=== PATIENT | female | born 1940 | race Caucasian/White ===

== ENCOUNTER 2016-10-20 15:08 | Inpatient (IN) | payer MEDICARE ==
[~2016-10-20] VITALS: Ht 160 cm; Wt 49.4 kg
--- NOTE | 2016-10-20 15:10 | NUR ---
ARRIVED PT ARRIVED VIA PRIVATE CAR WITH DAUGHTER AND DAUGHTER IN LAW. PT AGGITATED SOON NAME WAS CALLED FOR PT TO COME BACK TO ROOM. PT WAS YELLING THAT SHE DID NOT NEED ANY MORE TEST. PT KEPT TRYING TO LEAVE THE UNIT AND ME AND RN STUDENT KEPT REDIRECTING PT TRYING TO GET PT INTO ROOM. PT SAT IN THE MIDDLE OF THE FLOOR SAYING SHE WAS NOT GOING IN ROOM SHE DID NOT NEED ANY MORE TEST THAT SHE IS NOT PAYING FOR MORE TESTS. FINALLY GOT PT IN ROOM AND TRIAGE DONE AFTER ABOUT 10MIN.
--- NOTE | 2016-10-20 15:40 | NUR ---
LAB LAB ARRIVED @ BEDSIDE, PT ALLOWED THEM TO DRAW LABS BUT STILL SAYING SHE NEEDS NO MORE TEST.
[2016-10-20 15:55] LABS: BASOPHIL % 0.3 % (0.0-0.2); EOSINOPHIL # 0.3 10^3/uL (0.0-0.2); EOSINOPHIL % 2.4 % (0.0-5.0); HEMATOCRIT 48.8 % (36.0-46.0); HEMOGLOBIN 16.2 g/dL (12.0-15.0); LYMPHOCYTES # 2.6 10^3/uL (1.0-4.8); LYMPHOCYTES % 24.5 % (24.0-44.0); MEAN CELL HGB 29.2 pg (26-34); MEAN CELL HGB CONCENTRATION 33.2 g/dL (33-37); MEAN CORP VOLUME 88.1 fL (78-100); MEAN PLATELET VOLUME 9.2 fL (7.8-11.0); MONOCYTES # 0.8 10^3/uL (0.3-0.8); MONOCYTES % 7.1 % (5.0-12.0); NEUTROPHILS % 65.4 % (41.0-85.0); PLATELET COUNT 202 10^3/uL (150-400); RED CELL DISTRIBUTION WIDTH 14.1 % (11.5-14.5); WHITE BLOOD CELL 10.6 10^3/uL (4.5-11.0)
[2016-10-20 16:03] LABS: BILIRUBIN,URINE NEGATIVE (NEGATIVE); UROBILINOGEN,URINE NORMAL (NEGATIVE)
--- NOTE | 2016-10-20 16:08 | NUR ---
STATUS PT OPENED DOOR TO LEAVE, EXPLAINED TO PT THAT SHE NEEDS TO STAY IN ROOM UNTIL WE GET TEST RESULTS BACK. LEFT DOOR OPENED AND PT STATED THAT WAS BETTER. DAUGHTER AND DAUGHTER IN LAW REMAIN @ PT BEDSIDE.
[2016-10-20 16:17] LABS: UR BENZODIAZEPINE QUAL NEGATIVE (NEGATIVE); UR COCAINE QUAL NEGATIVE (NEGATIVE)
[2016-10-20 16:20] LABS: APPEARANCE,URINE CLEAR (CLEAR); UA COLOR YELLOW (YELLOW)
--- NOTE | 2016-10-20 16:22 | NUR ---
XRAY RADIOLOGY @ BEDSIDE FOR CHEST XRAY
--- NOTE | 2016-10-20 16:23 | NUR ---
STATUS PT UP WALKING IN HALLWAY WITH DAUGHTER IN LAW, REMAINS SLIGHTLY AGGITATED WANTING TO LEAVE BUT IS MORE COOPERATIVE.
--- NOTE | 2016-10-20 16:36 | DIREP ---
PROCEDURE:CHEST 1 VIEW COMPARISON:[facility], CR, XRAY CHEST 2 VWS, 01/06/2016, 05:19 PM. INDICATIONS:medical clearance FINDINGS: LUNGS/PLEURA:There is pulmonary hyperinflation consistent with underlying COPD. No focal consolidation. No effusions. VASCULATURE:Normal. Unremarkable pulmonary vasculature. CARDIAC:Normal. No cardiac silhouette abnormality or cardiomegaly. MEDIASTINUM:Atheromatous calcifications of the aortic arch BONES:Normal. No fracture or visible bony lesion. OTHER:Negative. CONCLUSION:Mild emphysema. No superimposed consolidation or pleural effusion Dictated by: Duke Salvador M.D. on 10/20/2016 at 03:34 PM Read in [place]
[2016-10-20 16:50] LABS: ALANINE AMINOTRANSFERASE 27 U/L (12-78); ALKALINE PHOSPHATASE 79 U/L (50-136); ASPARTATE AMINO TRANSFERASE 38 U/L (0-35); CALCIUM 8.7 mg/dL (8.4-10.5); CARBON DIOXIDE 25.3 mmol/L (20.0-32); CHOLESTEROL 173 mg/dL (120-240); GLUCOSE 117 mg/dL (70-110); HDL CHOLESTEROL 72 mg/dL (32-96)
--- NOTE | 2016-10-20 17:34 | NUR ---
SAMMIE SPRINGER SPOKE TO DR COCHRAN AT THIS TIME REGARDING PT. PT MEDICALLY CLEAR, DR COCHRAN ACCEPTED PT.
--- NOTE | 2016-10-20 17:39 | ER.PDOC ---
General Chief Complaint: Medical Clearance Stated Complaint: MED CLEARANCE Time seen by MD: 17:00 Source: patient, family History of Present Illness Timing/Duration: getting worse Severity: moderate Past Medical History Medical History: COPD, hypertension, other (dementia) LMP (females 10-50): postmenopause Social History Smoking: greater than 1 pack/day Alcohol Use: none Drug Use: none Review of Systems Constitutional: no symptoms reported EENTM: no symptoms reported Respiratory: no symptoms reported Cardiovascular: no symptoms reported Gastrointestinal: no symptoms reported Psychiatric/Neurological: other (paranoia, wandering , danger to self) All Other Systems: Reviewed and Negative Physical Exam General Appearance: No acute distress, Alert EENT: No nystagmus, PERRLA, EOM's intact, NML ENT inspection, Pharynx nml, NML gag reflex Neck: Non-Tender, Full Range of Motion, Supple, Normal Inspection Respiratory: chest non-tender, lungs clear, normal breath sounds, no respiratory distress, no accessory muscle use Cardiovascular: Normal Peripheral Pulses, Regular Rate, Rhythm, No Edema, No Gallop, No JVD, No Murmur Gastrointestinal: Normal Bowel Sounds, No Organomegaly, No Pulsatile Mass, Non Tender, Soft Extremities: Non-Tender, Normal Range of Motion, No Evidence of Trauma, No Edema Neurological/Psychiatric: Alert, Normal Mood/Affect, Calm, block cuber II-XII NML as Tested, Oriented x 3 Behavior/Eye Contact/Speech: Compulsive Thoughts/Hallucinations: Delusions, Paranoid Skin: Normal Color, Warm/Dry Results/Orders Results/Orders Laboratory Tests Test 10/20/16 15:31 10/20/16 15:49 10/20/16 15:55 Opiates Screen Negative (NEGATIVE) Barbiturate Screen Negative (NEGATIVE) Urine Tricyclic Antidepressants Negative (NEGATIVE) Phencyclidine (PCP) Screen Negative (NEGATIVE) Amphetamines Screen Negative (NEGATIVE) Benzodiazepines Screen Negative (NEGATIVE) Cocaine Screen Negative (NEGATIVE) Ur Tetrahydrocannabinol (THC) Scrn Negative (NEGATIVE) White Blood Count 10.610^3/uL (4.5-11.0) Red Blood Count 5.5410^6/uL (4.00-5.20) Hemoglobin 16.2g/dL (12.0-15.0) Hematocrit 48.8% (36.0-46.0) Mean Corpuscular Volume 88.1fL (78-100) Mean Corpuscular Hemoglobin 29.2pg (26-34) Mean Corpuscular Hemoglobin Concent 33.2g/dL (33-37) Red Cell Distribution Width 14.1% (11.5-14.5) Platelet Count 49296^3/uL (150-400) Mean Platelet Volume 9.2fL (7.8-11.0) Neutrophils (%) (Auto) 65.4% (41.0-85.0) Lymphocytes (%) (Auto) 24.5% (24.0-44.0) Monocytes (%) (Auto) 7.1% (5.0-12.0) Neutrophils # (Auto) 7.010^3/uL (1.8-7.7) Lymphocytes # (Auto) 2.610^3/uL (1.0-4.8) Monocytes # (Auto) 0.810^3/uL (0.3-0.8) Absolute Immature Granulocyte (auto 0.0310^3 u/L (0-2) Eosinophils % 2.4% (0.0-5.0) Basophils % 0.3% (0.0-0.2) Basophils # 0.010^3/uL (0.0-0.1) Eosinophil Count 0.310^3/uL (0.0-0.2) Prothrombin Time 11.1SEC (9.8-11.9) Prothromb Time International Ratio 1.0 Activated Partial Thromboplast Time 24.0SEC (24.67-30.72) Sodium Level 143mmol/L (132-145) Potassium Level 4.0mmol/L (3.6-5.2) Chloride Level 109.0mmol/L (96-109) Carbon Dioxide Level 25.3mmol/L (20.0-32) Anion Gap 12.7 Blood Urea Nitrogen 25mg/dL (7-18) Creatinine 0.91mg/dL (0.59-1.40) Estimat Glomerular Filtration Rate BUN/Creatinine Ratio 27.0 Glucose Level 117mg/dL (70-110) Hemoglobin A1c 5.3% (4.2-6.2) Calculated Osmolality 300.9 Calcium Level 8.7mg/dL (8.4-10.5) Total Bilirubin 0.2mg/dL (0.2-1.0) Aspartate Amino Transf (AST/SGOT) 38U/L (0-35) Alanine Aminotransferase (ALT/SGPT) 27U/L (12-78) Alkaline Phosphatase 79U/L (50-136) Total Creatine Kinase 219U/L (26-192) Creatine Kinase MB 5.0ng/mL (0.5-3.6) Troponin I < 0.02ng/mL (0.00-0.05) C-Reactive Protein < 0.05mg/dL (0.00-5.00) Pro-B-Type Natriuretic Peptide 102pg/mL (0-450) Total Protein 6.6g/dL (6.4-8.2) Albumin 3.9g/dL (3.4-5.0) Globulin 2.7 Triglycerides Level 70mg/dL (20-200) Cholesterol Level 173mg/dL (120-240) LDL Cholesterol, Calculated 87.0 VLDL Cholesterol 14.0 HDL Cholesterol 72mg/dL (32-96) Cholesterol Ratio (LDL/HDL) 1.2 Cholesterol/HDL Ratio 2.225681 Thyroid Stimulating Hormone (TSH) 3.152mIU/mL (0.358-3.740) Valproic Acid (Depakene) Level < 3ug/mL (50-100) [place] Level < 0.20mmol/L (0.6-1.2) Percent Immature Gran (Cell Imm) 0.30% (0.00-0.50) Urine Collection Type Unknown Urine Color Yellow (YELLOW) Urine Appearance Clear (CLEAR) Urine Bilirubin NegativeMG/DL (NEGATIVE) Urine Ketones Negative (NEGATIVE) Urine Specific [place] 1.020 (1.005-1.035) Urine pH 6 (5.0-6.0) Urine Protein 15 mg/dl (NEGATIVE) Urine Urobilinogen Normal (NEGATIVE) Urine Nitrate Negative (NEGATIVE) Urine Leukocyte Esterase 25 /ul trace (NEGATIVE) Urine Blood Negative (NEGATIVE) Urine RBC None seenRBC/HPF Urine WBC 2-5WBC/HPF (0-2) Urine Squamous Epithelial Cells Few#/HPF (FEW) Urine Bacteria Moderate (NONE SEEN) Urine Glucose Normal (NEGATIVE) Departure Time of Disposition: 18:00 Disposition: 65 XFER TO PSYCH HOSP/UNIT Impression: Primary Impression: Dementia Referrals: PCP,UNKNOWN (PCP) PRIMARY CARE PROVIDER Comments DR COCHRAN CONSULTED ANUSHKA SPRINGER MD Oct 20, 2016 17:38
[2016-10-20 18:02] VITALS: BP 141/85
--- NOTE | 2016-10-20 18:03 | NUR ---
On unit Pt ambulated onto unit alongside Uday Conn LVN and x2 family members. Pt is alert, states, "I'm angry. Can I leave now?" Anxious, flat, and irritable affect. Able to be redirected with verbalization.
[2016-10-20] MEDS ORDERED: MIRT30TA4 PO (18:13)
[2016-10-20] MEDS ORDERED: MELO15TA6 PO (18:13)
[2016-10-20] MEDS ORDERED: AMLO1CAP8 PO (18:13)
[2016-10-20] MEDS ORDERED: ALEN70TA5 PO (18:13)
[2016-10-20] MEDS ORDERED: MEMA1CAP6 PO (18:13)
[2016-10-20] MEDS ORDERED: CALC-614 PO (18:15)
[2016-10-20] MEDS ORDERED: CHOL20003 PO (18:16)
[2016-10-20] MEDS ORDERED: ATIVAN IM PRN (18:30)
[2016-10-20] MEDS ORDERED: ATIVAN PO PRN (18:30)
[2016-10-20] MEDS ORDERED: HALDOL IM PRN (18:30)
[2016-10-20] MEDS ORDERED: HALDOL PO PRN (18:30)
[2016-10-20] MEDS ORDERED: RISPERDAL ONE (18:43)
[2016-10-20] MEDS ORDERED: REMERON ONE (18:43)
--- NOTE | 2016-10-20 19:09 | PRM.ACF1 ---
Admission Criteria Forms PSYCHIATRIC DISORDERS Clinical Indications for Inpatient Care (Place 'X' for any and all applicable criteria): Ongoing inpatient care may be needed for ANY ONE of the following(1)(2)(3)(4)(6) (7)(8): [ ]I. Danger to self or others not manageable at lower level of care. [ ]II. Grave disability (eg, inability to perform self care necessary at lower level of care) [ ]III. Agitation or inappropriate behavior interfering with care for primary condition (eg, attempting to discontinue lines or drains prematurely, unable to cooperate with respiratory care) [X]IV. Severe disability or disorder indicated by ALL of the following: [X]a) Severe behavioral health disorder-related symptoms or condition indicated by ANY ONE of the following: [ ]i) Severe problem with cognition, memory, judgment, or impulse control [X]ii) Severe clinical manifestations (eg, hallucinations, delusions, other acute psychotic symptoms, mechelle, extreme agitation or anxiety) [X]b) Patient management at lower level of care is not feasible until acute intervention or modification is initiated. Extended stay beyond goal length of stay for the primary condition may be indicated when ANY ONE of the following is present: (1)(2)(3)(4): [ ]a) Patient is a danger to self or others and not manageable at lower level of care. [ ]b) Behavior crisis management, including physical or chemical restraints, is required and is not available at a lower level of care. [ ]c) Behavioral symptoms (e.g., agitation, somnolence, inappropriate behavior) are present, and are not manageable at a lower level of care. [ ]d) Patient cannot understand follow-up treatment and crisis plan. [ ]e) Provider and supports are not sufficiently available at lower level of care. [ ]f) Patient cannot participate (e.g., verify absence of plan for harm) and is in needed of monitoring. The original [facility] [employer] content created by [facility] [employer] has been revised. The portions of the content which have been revised are identified through the use of italic text or in bold, and [facility] has neither reviewed nor approved the modified material. All other unmodified content is copyright [facility]. Please see references footnoted in the original [facility] edition 2016 Is [facility]parna's added/comple: YES MADISON TRIVEDI CDS Oct 20, 2016 19:09
[2016-10-20] MEDS: RISPERDAL PO SCH (20:58)
[2016-10-20] MEDS: REMERON PO SCH (20:59)
--- NOTE | 2016-10-20 21:00 | NUR ---
behaviors FOLLOWING SHIFT REPORT PT,HER DAUGHTER AND DAUGHTER IN LAW WERE SITTING IN FRONT OF NURSE'S DESK. PT. WAS AGITATED SAYING SHE WAS NOT GOING TO STAY HERE. DR. MUÑOZ THEN CALLED ON TELEMED ,REQUESTED TO TALK TO DAUGHTER ALONE, FIRST BUT PT. BURST INTO THE ROOM AND WAS YELLING LOUDLY AND SAYING SHE WAS NOT GOING TO STAY ALL NIGHT HERE. PT. STATES SHE IS NOT DEPRESSED OR ANXIOUS BUT STATED SHE WAS ANGRY AT HER FAMILY FOR BRINGING HER HERE. SHE STATES SHE NEEDS TO GO HOME AND TAKE CARE OF HER DOGS WHO SLEEP WITH HER. DAUGHTER STATES PT. DOES NOT WANT TO BATH AND DOES NOT KNOW WHEN SHE LAST BATHED. PT. STATES SHE WALKS HER DOGS AROUND THE BLOCK EVERY DAY AND IS NOT IN ANY DANGER BUT DAUGHTER SAYS THEY HAVE TO CALL THE POLICE AND PT. TELLS THE POLICE THAT SHE IS WALKING TO [place], [place]. MEDICATION ORDER RECEIVED FROM DR. MUÑOZ. PT. DID TAKE MEDICATION. PT. STATED SHE DID NOT NEED ANY MEDICATION THOUGH. WITH PT.'S PERMISSION HER PURSE AND CONTENTS , WALLET,MONEY,WATCH AND MEDICATIONS SENT HOME WITH DAUGHTER IN LAW. PT. WENT TO BED BUT REFUSED TO CHANGE INTO NIGHT CLOTHING. MEMORY LOSS NOTED. PT. SMOKES CIGARETTES BUT REFUSED A NICOTINE PATCH WHEN OFFERED BY DR. MUÑOZ. Addendum: 10/21/16 at 0142 by Tiffany Colmenares RN RN Amended: Links added.
--- NOTE | 2016-10-20 21:00 | NUR ---
Medication pt received new medication this HS discuss what each med is used for pt is very upset and crying and states she does not need any medication. Pt. takes medication without difficulty will monitor pt for any adverse reaction
--- NOTE | 2016-10-20 23:42 | PSYCH ---
DATE OF SERVICE: 10/20/2016 INITIAL PSYCHIATRIC HISTORY AND PHYSICAL CHIEF COMPLAINT: Brought on emergency fci for aggressive and exit seeking behavior. HISTORY OF PRESENT ILLNESS: The patient is a 76-year-old female with a history of Alzheimer type dementia, behavior problems, and depression. The patient was very irritable tonight in the interview. She had 2 family members with her. She was yelling and screaming at staff. She showed very poor insight into her illness and the situation. She was oriented to person. She was disoriented to place, time, and situation. She could not do serial sevens. She could not spell "world" backwards. She got very irritable when asked these questions. She stated that her mood was okay. She denied feeling depressed. She denied anxiety symptoms. She denied psychotic symptoms. She denied manic or hypomanic symptoms. Her mood is irritable. She denied suicidal or homicidal ideation. She downplayed the significance of her problems. Per reports, she has had exit seeking behavior where she has tried to walk from [place], [place] to [place]. She is not driving anymore and just leaves her house and walks and forgets where she is. She has called the police for no reasons at times. She was put on emergency fci by [facility] earlier today. Her family is concerned about her behaviors. She is not very cooperative. PAST MEDICAL HISTORY: 1. Hypertension. 2. Dementia. 3. History of pain. CURRENT MEDICATIONS: 1. Alendronate 70 mg p.o. every 7 days. 2. Amlodipine/benazepril 5/10 mg capsules p.o. daily. 3. Calcium carbonate/vitamin D3 500/600 mg tablet daily. 4. Vitamin D3 5000 units p.o. daily. 5. Mobic 15 mg p.o. daily p.r.n. pain. 6. Memantine/donepezil 02/01/08/05 capsule daily. 7. Mirtazapine 30 mg p.o. at bedtime. PAST PSYCHIATRIC HISTORY: The patient has ever been hospitalized for psychiatric reasons. She has never attempted suicide. She has been treated for Alzheimer-type dementia and depression in the past. She has never followed with psychiatrist on a regular basis. FAMILY PSYCHIATRIC HISTORY: None reported. SOCIAL HISTORY: The patient denies using alcohol, illicit drugs, or tobacco. The patient lives in [place], [place]. She enjoys her pets. She talked about her pets multiple times and stated she needed to go home due to her pets. She is retired. She is . She has 2 children. One of her children lives in [place]. OBJECTIVE: VITAL SIGNS: Height is 63 inches, weight is 101 pounds, BMI is 18.0, temperature is 97.0, pulse is 91, respirations are 18, blood pressure is 141/85, O2 saturations 96% on room air. The patient was in no physical pain or distress at the time of the interview. REVIEW OF SYSTEMS: CONSTITUTIONAL: No recent changes in weight. No fatigue. No insomnia reported. NEUROLOGICAL: No tremors. No weakness. No dizziness. PSYCHIATRIC: Positive for irritability. No anxiety. No psychosis. No crying spells. No mechelle. GASTROINTESTINAL: No nausea, vomiting, diarrhea, or constipation reported. MUSCULOSKELETAL: No abnormal muscle movements. No musculoskeletal pain reported. GENITOURINARY: No problems urinating. EYES: No recent changes in vision. EARS: No recent changes in hearing. EXTREMITIES: No swelling or edema. ENDOCRINE: No heat or cold intolerance. CARDIOVASCULAR: No chest pain or chest palpitations. RESPIRATORY: No shortness of breath. No wheezing or coughing. Review of systems is otherwise negative, reviewed by Dr. Bernstein. MENTAL STATUS EXAMINATION: MUSCLE STRENGTH AND TONE: Within normal limits and no recent changes. GAIT AND STATION: Within normal limits and no recent changes. APPEARANCE: Well-groomed and good hygiene. Appears stated age. Casual attire. Underweight. ATTITUDE AND BEHAVIOR: Uncooperative. Poor eye contact. Psychomotor agitation. MOOD AND AFFECT: Mood is irritable. Affect is guarded. ORIENTATION: Disoriented to place, time, and situation. ATTENTION AND CONCENTRATION: Poor attention and poor concentration. SPEECH: Regular rate, volume, rhythm, and prosody. JUDGMENT AND INSIGHT: Poor judgment and poor insight. THOUGHT PROCESS: Linear and goal directed. Perseverates on certain ideas. LANGUAGE: Lebanese. THOUGHT CONTENT: Negative for suicidal or homicidal ideation. Negative for auditory or visual hallucinations. Positive for delusional thinking. FUND OF KNOWLEDGE: Poor. ASSOCIATIONS: Loose associations. MEMORY: Recent and remote memory are both impaired. ASSESSMENT: Alzheimer type dementia with behavior disturbance; delusional disorder; major depressive disorder; generalized anxiety disorder. TREATMENT PLAN: 1. The patient will be an involuntary admission at the [facility]. The patient will be monitored closely for behaviors. 2. The patient will be started on Risperdal 0.25 mg p.o. b.i.d. The patient will be started on Haldol 1 mg p.o. or IM q.6 hours p.r.n. agitation and lorazepam 0.5 mg p.o. or IM q.6 hours p.r.n. anxiety. The patient will continue Remeron 15 mg p.o. at bedtime and her Namenda/donepezil pill. 3. The patient will be seen by Dr. Abbasi and he will manage her general health medications. 4. The patient will be encouraged to participate in all groups and activities. José Antonio Bernstein IV MD DR: /aranza JOB# [id number]
[2016-10-21] MEDS ORDERED: NAMENDA ONE (06:47)
[2016-10-21] MEDS ORDERED: ARICEPT ONE (06:47)
--- NOTE | 2016-10-21 07:30 | NUR ---
behavior: PT. ALERT TO NAME ONLY. PT. DENIES ANY DEPRESSION,ANXIETY OR S/H IDEATION. PT. HAS BEEN CALM AND COOPERATIVE.
[2016-10-21 08:10] VITALS: BP 160/89
[2016-10-21] MEDS: RISPERDAL PO SCH ×2 (08:37→20:19)
[2016-10-21] MEDS: ARICEPT PO SCH (08:48)
[2016-10-21] MEDS: NAMENDA PO SCH (08:50)
--- NOTE | 2016-10-21 10:10 | NUR ---
[place] TEAM: PT. SEEN BY DR. MUÑOZ AND [place] TEAM. NO NEW ORDERS.
--- NOTE | 2016-10-21 10:11 | PRM.PN ---
Mood: DEPRESSED, IRRITABLE, CONFUSED Sleep: SLEPT 4.75 HOURS LAST NIGHT Appetite: UP AND DOWN Suidical thoughts: NONE REPORTED Homicidal thoughts: NONE REPORTED Recent stressors: STRESS OF MENTAL ILLNESS Family support: DAUGHTER, [id number] Aggressive Behavior: VERBALLY AGGRESSIVE Ability to Perform ADL'sc: ABLE TO DO HER ADLS Psychotic sympstoms: DELUSIONAL THINKING, NO HALLUCINATIONS Manic Symptoms: NONE REPORTED Living situation: WAS LIVING AT HOME IN [place] Illicit Drug usec: NONE REPORTED Alcoholo use: NONE REPORTED Tobacco use: NONE REPORTED Family,PT,Surgical,&Current HX: Anxity Symptoms: MODERATE ANXIETY LEVEL Anger/Irritablility: PROBLEMS WITH ANGER AND IRRITABILITY Muscle Strength & Tone: WNL Gait & Station: WNL Appearance: Appears older, Casual attire, Underweight Attitude & Behaviour: Uncooperative, Poor eye contact, Psychomotor agitation Mood & Affect: Iabile Orientation: Disoriented to place, Disoriented to time, Disoriented to situation Attention/Concentration: Poor attention, Poor concentration Speech: Impaired Judgement/Insight: Poor judgement, Poor insight Thought Process: Loose, Tangential Language: Kosovan Thought content/Abnormal/Psych: Delusions Fund of Knowledge: Other Associations: TOMER Memory (recent and remote): Recent memory repaired, Remote memory repaired Constitutional: None Neurological: None Psychiatric: Depressed, Anxious, Psychosis [place] I: DELUSIONAL DISORDER; PSYCHOSIS; DEMENTIA; ANXIETY, DEPRESSION [place] II: DEFERRED [place] III: REFER TO PMH/MEDICAL CHART [place] IV: STRESS OF MENTAL ILLNESS [place] V: GAF=25 Assessment/Plan Assessment/Plan Assessment/Plan First Vital Signs Date Time Temp Pulse Resp B/P Pulse Ox O2 Delivery O2 Flow Rate FiO2 10/20/16 15:29 112 18 96 10/20/16 15:37 98.2 165/79 10/20/16 18:02 Room Air Last Vital Signs Date Time Temp Pulse Resp B/P Pulse Ox O2 Delivery O2 Flow Rate FiO2 10/21/16 08:10 96.8 79 18 160/89 92 Room Air THE PATIENT WAS SEEN BY DR. MUÑOZ FACE TO FACE ALONG WITH THE TREATMENT TEAM. THE PATIENT WAS TRYING TO WALK FROM [place] TO [place]. SHE WANDERS OUT OF HER HOUSE AND GETS LOST PER HER FAMILY. THE PATIENT SLEPT 4.75 HOURS LAST NIGHT. THE PATIENT DID NOT EAT MUCH BREAKFAST THIS MORNING. SHE IS GOING TO GET BOOST SHAKES WITH HER MEALS. THE PATIENT HAS LIMITED INSIGHT INTO HER PROBLEMS. ASSESSMENT: DELUSIONAL DISORDER; PSYCHOSIS; ALZHEIMER'S DEMENTIA WITH BEHAVIOR PROBLEMS; MAJOR DEPRESSION; GENERALIZED ANXIETY DISORDER PLAN: 1) CONTINUE [place] [place] MANAGEMENT. 2) CONTINUE CURRENT MEDICATIONS. THE STAFF WAS AGREEABLE WITH THE PLAN. Problems: (1) Dementia Status: Acute ICD Code: F03.90 SNOMED: 74831120 (2) Delusional disorder Status: Acute ICD Code: F22 SNOMED: [id number] Patient History: KAYDEN MUÑOZ IV, MD Oct 21, 2016 10:10
[2016-10-21] MEDS ORDERED: MOBIC PO PRN (13:00)
[2016-10-21] MEDS ORDERED: FOSAMAX PO SCH (13:00)
--- NOTE | 2016-10-21 13:45 | PCM.HP ---
History of Present Illness Reason for Visit: Delusional Disorder, Dementia with Behavior Disturbance History of Present Illness 76 y/o F who lives alone with her dogs with PMHx Alzheimers Dementia, COPD, HTN , Active Heavy Smoker, B-12 deficiency, Polycythemia likely due to smoking, Depression, Osteoporosis, Osteoarthritis presented for involuntary admission with a diagnosis of "Delusional Disorder" to the [facility] unit after she was found to be [place] her [place] in an extremely unsafe manner and was found to be confused and disoriented when she was doing this. She has no acute medical problems. She denies any complaints. The patient has dementia and is unable to provide any medical history. Her past medical history was obtained from very limited medical records that are available and from the assumption that the medications she was taking (e.g., Alendronate, Meloxicam, Mirtazapine) are being used to treat the conditions those medications are usually used for: Osteoporosis, Osteoarthritis, Depression/Anxiety. 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 Alcohol: none Drugs: None Lives: Alone Travel Hx EBOLA RISK:Travel to/contact w: No Is pt experiencing any Ebola s: No Review of Systems Constitutional: No: Chills, Fever, Malaise, Other, Sweats, Weakness Eyes: No: Conjunctivae inflammation, Eyelid inflammation, Other, Pain, Redness , Vision change ENT: No: Ear discharge, Ear pain, Mouth pain, Mouth swelling, Nose congestion, Nose discharge, Nose pain, Other, Throat pain, Throat swelling Respiratory: No: Cough, Dry, Hemoptysis, Other, Pleuritic Pain, SOB with excertion, Shortness of breath, Sputum, Wheezing, Wheezing Cardiovascular: No: Chest Pain, Edema, Lt Headedness, Orthopnea, Other, Palpitations, Paroxysmal Noc. Dyspnea Gastrointestinal: No: Abdominal Pain, Constipation, Diarrhea, Hematochezia, Melena, Nausea, Other, Vomiting Genitourinary: No Dysuria, No Frequency, No Incontinence, No Hematuria, No Retention, No Other Musculoskeletal: No: arm pain, back pain, foot pain, hand pain, leg pain, neck pain, other, shoulder pain Skin: No: Bruising, Jaundice, Lesions, Other, Rash Neurological: No: Change in speech, Confusion, Incoordination, Numbness, Other , Seizures, Weakness Allergies: Coded Allergies: Penicillins (Verified Allergy, Unknown, Anaphylaxis Shock, 10/20/16) Uncoded Allergies: sulfa (Adverse Reaction, Intermediate, 10/20/16) Scheduled Alendronate Sodium (Alendronate Sodium) 70 MG PO Q7D (Reported) Amlodipine Besylate/Benazepril (Amlodipine-Benazepril 5-10 Mg) 1 CAP PO DAILY ( Reported) Calcium Carbonate/Vitamin D3 (Calcium 500-Vit D3 600 Tablet) 1 EACH PO DAILY ( Reported) Cholecalciferol (Vitamin D3) (Vitamin D-3) 5,000 UNIT PO DAILY (Reported) Memantine HCl/Donepezil HCl (Namzaric Titration Pack) 7 MG PO DAILY (Reported) Mirtazapine (Mirtazapine) 1 TAB PO HS (Reported) Scheduled PRN Meloxicam (Mobic) 1 TAB PO DAILY PRN PRN PAIN (Reported) VTE VTE Risk Total Score: 3 VTE Risk Score VTE Risk: Score 0-1 = Low Risk (Aggressive mobilization; early ambulation; no VTE prophylaxis required) Score 2: Moderate Risk (Intermittent/Pneumatic Compression Device OR Lovenox/Heparin/Coumadin) Score 3-4: High Risk (Intermittent/Pneumatic Compression Device AND Lovenox/Heparin/Coumadin) Score > or =5: Highest Risk (Intermittent/Pneumatic Compression Device AND Lovenox/Heparin/Coumadin) Antico:Hep/LMWH/Coum/Xarelto: No Mechanical device ordered: No VTE VTE Present on Admission: No Currently receiving anticoagul: No VTE Risk Total Score: 3 Exam Vital Signs Vital Signs Date Time Temp Pulse Resp B/P Pulse Ox O2 Delivery O2 Flow Rate FiO2 10/21/16 08:10 96.8 79 18 160/89 92 Room Air General Appearance: Alert, No acute distress, Other (Not cooperative. Poor eye contact. Irritable.) HEENT: Atraumatic, PERRLA, EOMI, Mucous membr. moist/pink Respiratory: Clear to auscultation, Normal air movement Cardiovascular: Regular rate, Normal S1, Normal S2, No murmurs Abdominal: Normal bowel sounds, Soft, No tenderness, No masses Extremities: No clubbing, No cyanosis, No edema, Normal pulses, No tenderness/ swelling Skin: No rash, No breakdown, No lesions Neuro: Normal gait, Normal speech, Strength at 5/5 X4 ext, Normal tone, Sensation intact, Cranial nerves 3-12 NL, Reflexes 2+ Psych/Mental Status: Other (+Dementia. +Irritable.) Assessment/Plan Assessment/Plan Assessment/Plan Orders-BRUNO ABBASI MD Pt has h/o Vitamin B12 deficiency but Vitamin B12 results are not available -- will order Vitamin B12 and Folate labs and vitamin, which has both. Resuscitation Status (10/20/16 21:35) Criteria Met - Dietary Consult (10/21/16 04:39) Alendronate Sodium (Fosamax) (10/21/16 13:00) Cholecalciferol (Vitamin D3) (Vitamin D) (10/22/16 09:00) Meloxicam (Mobic) (10/21/16 13:00) Amlodipine Besylate (Norvasc) (10/22/16 09:00) Benazepril Hcl (Lotensin) (10/22/16 09:00) Calcium Carbonate/Vitamin D3 (Caltrate 6 (10/21/16 21:00) First Vital Signs Date Time Temp Pulse Resp B/P Pulse Ox O2 Delivery O2 Flow Rate FiO2 10/20/16 15:29 112 18 96 10/20/16 15:37 98.2 165/79 10/20/16 18:02 Room Air Last Vital Signs Date Time Temp Pulse Resp B/P Pulse Ox O2 Delivery O2 Flow Rate FiO2 10/21/16 08:10 96.8 79 18 160/89 92 Room Air Intake and Output 10/21/16 07:00 Intake Total 50 ml Balance 50 ml Intake Oral 50 ml # Voids 4 Laboratory Tests Test 10/20/16 15:31 10/20/16 15:49 10/20/16 15:55 Opiates Screen Negative Barbiturate Screen Negative Urine Tricyclic Antidepressants Negative Phencyclidine (PCP) Screen Negative Amphetamines Screen Negative Benzodiazepines Screen Negative Cocaine Screen Negative Ur Tetrahydrocannabinol (THC) Scrn Negative White Blood Count 10.610^3/uL Red Blood Count 5.5410^6/uL Hemoglobin 16.2g/dL Hematocrit 48.8% Mean Corpuscular Volume 88.1fL Mean Corpuscular Hemoglobin 29.2pg Mean Corpuscular Hemoglobin Concent 33.2g/dL Red Cell Distribution Width 14.1% Platelet Count 79694^3/uL Mean Platelet Volume 9.2fL Neutrophils (%) (Auto) 65.4% Lymphocytes (%) (Auto) 24.5% Monocytes (%) (Auto) 7.1% Neutrophils # (Auto) 7.010^3/uL Lymphocytes # (Auto) 2.610^3/uL Monocytes # (Auto) 0.810^3/uL Absolute Immature Granulocyte (auto 0.0310^3 u/L Eosinophils % 2.4% Basophils % 0.3% Basophils # 0.010^3/uL Eosinophil Count 0.310^3/uL Prothrombin Time 11.1SEC Prothromb Time International Ratio 1.0 Activated Partial Thromboplast Time 24.0SEC Sodium Level 143mmol/L Potassium Level 4.0mmol/L Chloride Level 109.0mmol/L Carbon Dioxide Level 25.3mmol/L Anion Gap 12.7 Blood Urea Nitrogen 25mg/dL Creatinine 0.91mg/dL Estimat Glomerular Filtration Rate BUN/Creatinine Ratio 27.0 Glucose Level 117mg/dL Hemoglobin A1c 5.3% Calculated Osmolality 300.9 Calcium Level 8.7mg/dL Total Bilirubin 0.2mg/dL Aspartate Amino Transf (AST/SGOT) 38U/L Alanine Aminotransferase (ALT/SGPT) 27U/L Alkaline Phosphatase 79U/L Total Creatine Kinase 219U/L Creatine Kinase MB 5.0ng/mL Troponin I < 0.02ng/mL C-Reactive Protein < 0.05mg/dL Pro-B-Type Natriuretic Peptide 102pg/mL Total Protein 6.6g/dL Albumin 3.9g/dL Globulin 2.7 Triglycerides Level 70mg/dL Cholesterol Level 173mg/dL LDL Cholesterol, Calculated 87.0 VLDL Cholesterol 14.0 HDL Cholesterol 72mg/dL Cholesterol Ratio (LDL/HDL) 1.2 Cholesterol/HDL Ratio 2.809478 Thyroid Stimulating Hormone (TSH) 3.152mIU/mL Valproic Acid (Depakene) Level < 3ug/mL [place] Level < 0.20mmol/L Percent Immature Gran (Cell Imm) 0.30% Urine Collection Type Unknown Urine Color Yellow Urine Appearance Clear Urine Bilirubin NegativeMG/DL Urine Ketones Negative Urine Specific [place] 1.020 Urine pH 6 Urine Protein 15 mg/dl Urine Urobilinogen Normal Urine Nitrate Negative Urine Leukocyte Esterase 25 /ul trace Urine Blood Negative Urine RBC None seenRBC/HPF Urine WBC 2-5WBC/HPF Urine Squamous Epithelial Cells Few#/HPF Urine Bacteria Moderate Urine Glucose Normal Current Medications Medications (Trade) Dose Ordered Sig/Dolly Route PRN Reason Start Time Stop Time Status Last Admin Dose Admin Haloperidol (Haldol) 1 mg Q6HR PRN PO AGITATION 10/20/16 18:30 11/19/16 18:29 Haloperidol Lactate (Haldol) 1 mg Q6HR PRN IM AGITATION 10/20/16 18:30 11/19/16 18:29 Lorazepam (Ativan) 0.5 mg Q6HR PRN PO ANXIETY 10/20/16 18:30 11/19/16 18:29 Lorazepam (Ativan) 0.5 mg Q6HR PRN IM ANXIETY 10/20/16 18:30 11/19/16 18:29 Miscellaneous Medication (Namenda) 7.5 mg DAILY PO 10/21/16 09:00 11/20/16 08:59 10/21/16 08:50 Mirtazapine (Remeron) 15 mg HS PO 10/20/16 21:00 11/19/16 20:59 10/20/16 20:59 Risperidone (Risperdal) 0.25 mg BID PO 10/20/16 21:00 11/19/16 20:59 10/21/16 08:37 Mirtazapine (Remeron) 15 mg STK-MED ONCE .ROUTE 10/20/16 18:43 10/20/16 20:44 DC Risperidone (Risperdal) 0.25 mg STK-MED ONCE .ROUTE 10/20/16 18:43 10/20/16 20:44 DC Donepezil HCl (Aricept) 10 mg DAILY PO 10/21/16 09:00 11/20/16 08:59 10/21/16 08:48 Donepezil HCl (Aricept) 5 mg STK-MED ONCE .ROUTE 10/21/16 06:47 10/21/16 08:48 DC Miscellaneous Medication (Namenda) 10 mg STK-MED ONCE .ROUTE 10/21/16 06:47 10/21/16 08:48 DC Problems: (1) Postmenopausal Status: Acute ICD Code: Z78.0 SNOMED: 44730944 (2) Insomnia Permanent Comment: Slept 4.75 hrs 10/20->10/21. Likely 2/2 Dementia, Depression , and Anxiety. Last Edited By: Bruno Abbasi MD on Oct 21, 2016 14:05 Status: Acute ICD Code: G47.00 SNOMED: 430079093 (3) Irritability and anger Permanent Comment: Per Psychiatrist Dr. Bernstein t has problems with anger and irritability. 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 Status: Acute ICD Code: F03.91 SNOMED: 794243099 (5) Anxiety Status: Acute ICD Code: F41.9 SNOMED: 93071078 (6) Acute depression Status: Acute ICD Code: F32.9 SNOMED: 923271949 (7) Cigarette nicotine dependence with withdrawal Status: Acute ICD Code: F17.213 SNOMED: 98428589 (8) Chronic obstructive pulmonary disease Status: Acute ICD Code: J44.9 SNOMED: 11734248 (9) Heavy smoker (more than 20 cigarettes per day) Status: Acute ICD Code: F17.210 SNOMED: 64575115 (10) Essential (primary) hypertension Status: Acute ICD Code: I10 SNOMED: 60664328 (11) Osteoporosis Status: Acute ICD Code: M81.0 SNOMED: 93835960 (12) Underweight on examination Permanent Comment: Not malnourished. Albumin 3.9. Last Edited By: Bruno Abbasi MD on Oct 21, 2016 14:00 Status: Acute ICD Code: R63.6 SNOMED: 209130514 (13) Dementia Status: Acute ICD Code: F03.90 SNOMED: 15359328 (14) Delusional disorder Status: Acute ICD Code: F22 SNOMED: 17615518 Patient History: BRUNO ABBASI MD Oct 21, 2016 13:45
--- NOTE | 2016-10-21 14:27 | NUR ---
MMSE: MODERATE IMPAIRMENT. PT DID GET FRUSTRATED WITH THE QUESTIONS AND TRIED TO GIVE REASONS TO WHY SHE DOES NOT REMEMBER CERTAIN AREAS OF THE ASSESSMENT. Addendum: 10/23/16 at 1429 by Ester Velazquez, SHYANNE, SUPERVISOR LABORATORY SW Amended: Links added.
--- NOTE | 2016-10-21 14:41 | NUR ---
GMAS: NO DEPRESSION Addendum: 10/23/16 at 1441 by Ester Velazquez, SHYANNE, REPAIRER HANDTOOLS SW Amended: Links added.
[2016-10-21] MEDS ORDERED: [UNRECOGNIZED DRUG - OTHER] ONE (18:18)
[2016-10-21] MEDS ORDERED: CALTRATE ONE (18:18)
[2016-10-21 19:55] VITALS: BP 126/92
[2016-10-21] MEDS: CALTRATE PO SCH (20:19)
[2016-10-21] MEDS: [UNRECOGNIZED DRUG - OTHER] PO SCH (20:19)
[2016-10-21] MEDS: REMERON PO SCH (20:20)
[2016-10-22] MEDS ORDERED: NAMENDA ONE (06:04)
[2016-10-22] MEDS ORDERED: NORVASC ONE (06:05)
[2016-10-22] MEDS ORDERED: LOTENSIN ONE (06:06)
[2016-10-22] MEDS ORDERED: VITAMIN D ONE (06:07)
[2016-10-22 07:48] VITALS: BP 152/77
[2016-10-22] MEDS: CALTRATE PO SCH ×2 (08:05→20:06)
[2016-10-22] MEDS: RISPERDAL PO SCH ×2 (08:05→20:06)
[2016-10-22] MEDS: [UNRECOGNIZED DRUG - OTHER] PO SCH ×2 (08:05→20:06)
[2016-10-22] MEDS: LOTENSIN PO SCH (08:07)
[2016-10-22] MEDS: NORVASC PO SCH (08:07)
[2016-10-22] MEDS: NAMENDA PO SCH (08:08)
[2016-10-22] MEDS: VITAMIN D PO SCH (08:08)
[2016-10-22] MEDS: ARICEPT PO SCH (08:55)
--- NOTE | 2016-10-22 11:08 | PRM.PN ---
Mood: IRRITABLE, "FRUSTRATED" Sleep: SLEEPING WELL AT NIGHT, SLEPT 9 HOURS LAST NIGHT Appetite: NORMAL APPETITE, UNDERWEIGHT Suidical thoughts: NONE REPORTED Homicidal thoughts: NONE REPORTED Recent stressors: STRESS OF MENTAL ILLNESS, POOR MEMORY Family support: DAUGHTER AND [id number] Aggressive Behavior: NONE REPORTED Ability to Perform ADL'sc: ABLE TO DO HER ADLS Psychotic sympstoms: DELUSIONAL THINKING, NO HALLUCINATIONS Manic Symptoms: NONE REPORTED Living situation: LIVES AT HOME Illicit Drug usec: NONE REPORTED Alcoholo use: NONE REPORTED Tobacco use: NONE REPORTED Family,PT,Surgical,&Current HX: Anxity Symptoms: MODERATE ANXIETY LEVEL Anger/Irritablility: SOME ANGER AND IRRITABILITY Muscle Strength & Tone: WNL Gait & Station: WNL Appearance: Appears older, Well groomed/hygience, Casual attire Attitude & Behaviour: Cooperative/Pleasant, Good eye contact, Psychomotor agitation Mood & Affect: Euthymic/appr/congruent, Iabile, Angry Orientation: Disoriented to place, Disoriented to time, Disoriented to situation Attention/Concentration: Poor attention, Poor concentration Speech: Reg rate/vol/rhyth/prosod Judgement/Insight: Poor judgement, Poor insight Thought Process: Linear/goal directed Language: Romansh Thought content/Abnormal/Psych: Delusions Fund of Knowledge: Other Associations: TOMER Memory (recent and remote): Recent memory repaired, Remote memory repaired Constitutional: None Neurological: None Psychiatric: Depressed, Anxious, Psychosis [place] I: DELUSONAL DISORDER; PSYCHOSIS; MDD; MARÍA ELENA; DEMENTIA WITH BEHAVIOR [place] II: DEFERRED [place] III: REFER TO PMH/MEDICAL CHART [place] IV: STRESS OF MENTAL ILLNESS [place] V: GAF=25 Assessment/Plan Assessment/Plan Assessment/Plan First Vital Signs Date Time Temp Pulse Resp B/P Pulse Ox O2 Delivery O2 Flow Rate FiO2 10/20/16 15:29 112 18 96 10/20/16 15:37 98.2 165/79 10/20/16 18:02 Room Air Last Vital Signs Date Time Temp Pulse Resp B/P Pulse Ox O2 Delivery O2 Flow Rate FiO2 10/22/16 08:07 152/77 10/22/16 08:07 83 10/22/16 07:48 96.6 17 93 Room Air THE PATIENT WAS SEEN BY DR. MUÑOZ VIA TELEMEDICINE EQUIPMENT (VSEE) ALONG WITH THE TREATMENT TEAM. THE PATIENT TOOK SHOWER THIS MORNING. THE PATIENT SLEPT 9 HOUR LAST NIGHT. THE PATIENT HAS BEEN EATING OK. THE PATIENT IS GOING TO BE OFFERED BOOST SHAKES. THE PATIENT PERSEVERATES ON IDEAS LIKE TAKING CARE OF HER PETS. THE PATIENT IS A POOR HISTORIAN. THE PATIENT HAS A POOR SHORT TERM MEMORY. ASSESSMENT: DELUSIONAL DISORDER; PSYCHOSIS; MAJOR DEPRESSION; GENERALIZED ANXIETY DISORDER; ALZHEIMER'S DEMENTIA PLAN: 1) CONTINUE [employer] [place] MANAGEMENT. 2) CONTINUE CURRENT MEDICATIONS. THE STAFF WAS AGREEABLE WITH THE PLAN. Problems: (1) Delusional disorder Status: Acute ICD Code: F22 SNOMED: 34621895 (2) Dementia Status: Chronic ICD Code: F03.90 SNOMED: 06547935 (3) Anxiety Status: Acute ICD Code: F41.9 SNOMED: 42653507 Patient History: KAYDEN MUÑOZ IV, MD Oct 22, 2016 11:08
--- NOTE | 2016-10-22 11:20 | NUR ---
TREATMENT TEAM PATIENT WAS SEEN BY DR. MUÑOZ TODAY IN TEAM. SHE DOES NOT KNOW WHERE SHE IS JUST SAYS IN A TALL STORY BUILDING. THINKS WE ARE IN JANUARY OR FEBRUARY OF 2016. ORIENTATED TO SELF. PATIENT SAYS SHE LIVES WITH HER DAUGHTER IN [place] AND ONLY GOT LOST ONE TIME WHILE TRYING TO WALK HER DOGS. NO HOMICIDAL/SUICIDAL IDEATIONS. NEW ORDERS TO GIVE BOOST WITH ALL MEALS. NO OTHER ORDERS AT THIS TIME.
[2016-10-22 19:54] VITALS: BP 105/78
[2016-10-22] MEDS: REMERON PO SCH (20:06)
[2016-10-23] MEDS ORDERED: NAMENDA ONE (06:52)
[2016-10-23 07:26] VITALS: BP 134/76
[2016-10-23] MEDS: CALTRATE PO SCH ×2 (08:48→20:25)
[2016-10-23] MEDS: [UNRECOGNIZED DRUG - OTHER] PO SCH ×2 (08:48→20:25)
[2016-10-23] MEDS: LOTENSIN PO SCH (08:49)
[2016-10-23] MEDS: NORVASC PO SCH (08:49)
[2016-10-23] MEDS: ARICEPT PO SCH (08:52)
[2016-10-23] MEDS: NAMENDA PO SCH (08:54)
[2016-10-23] MEDS: RISPERDAL PO SCH ×2 (08:56→20:25)
[2016-10-23] MEDS: VITAMIN D PO SCH (08:56)
--- NOTE | 2016-10-23 13:20 | NUR ---
Status Pt is alert and oriented to self and year. Has had calm, cooperative, pleasant affect. Denies depression/SI/anxiety; no hallucinations or delusions exhibited @ this time. Pt has participated in all group activities and has not been an elopement risk.
[2016-10-23 19:30] VITALS: BP 147/58
[2016-10-23] MEDS: REMERON PO SCH (20:25)
--- NOTE | 2016-10-23 22:23 | NUR ---
BEHAVIORS PT. ORIENTED TO NAME AND YEAR NOT MONTH. PLEASANT AND CHEERFUL AFFECT. NO INAPPROPRIATE BEHAVIORS NOTED. PARTICIPATED WELL IN GROUP ACTIVITIES.INITIATED INTERACTION WITH PEERS AND STAFF. IN BED RESTING WITH EYES CLOSED AT THIS TIME.
[2016-10-24] MEDS ORDERED: NAMENDA ONE (06:18)
[2016-10-24 08:02] VITALS: BP 143/86
[2016-10-24] MEDS: CALTRATE PO SCH ×2 (08:21→20:15)
[2016-10-24] MEDS: LOTENSIN PO SCH (08:21)
[2016-10-24] MEDS: NAMENDA PO SCH (08:21)
[2016-10-24] MEDS: ARICEPT PO SCH (08:21)
[2016-10-24] MEDS: [UNRECOGNIZED DRUG - OTHER] PO SCH ×2 (08:21→20:15)
[2016-10-24] MEDS: NORVASC PO SCH (08:21)
[2016-10-24] MEDS: RISPERDAL PO SCH ×2 (08:21→20:15)
[2016-10-24] MEDS: VITAMIN D PO SCH (08:21)
[2016-10-24 19:10] VITALS: BP 123/78
[2016-10-24] MEDS: REMERON PO SCH (20:15)
--- NOTE | 2016-10-24 20:46 | NUR ---
BEHAVIORS PT. WAS ORIENTED TIMES THREE. RATES DEPRESSION 2 AND ANXIETY0 SHE STATED SHE WAS DEPRESSED BECAUSE SHE IS AWAY FROM HER DOGS. .CHEERFUL AFFECT.ATTENDED GROUP,PARTICIPATED WELL AND TOOK MEDS ORDERED. LYING IN BED AWAKE, AT THIS TIME. SHE STATED SHE ALWAYS GOES TO BED EARLY.
[2016-10-25] MEDS ORDERED: NAMENDA ONE (06:40)
[2016-10-25 08:11] VITALS: BP 142/88
[2016-10-25] MEDS: [UNRECOGNIZED DRUG - OTHER] PO SCH ×2 (08:42→20:15)
[2016-10-25] MEDS: CALTRATE PO SCH ×2 (08:42→20:15)
[2016-10-25] MEDS: ARICEPT PO SCH (08:42)
[2016-10-25] MEDS: NORVASC PO SCH (08:42)
[2016-10-25] MEDS: LOTENSIN PO SCH (08:42)
[2016-10-25] MEDS: RISPERDAL PO SCH ×2 (08:43→20:15)
[2016-10-25] MEDS: NAMENDA PO SCH (08:43)
[2016-10-25] MEDS: VITAMIN D PO SCH (08:43)
--- NOTE | 2016-10-25 09:04 | NUR ---
Status Pt is alert and oriented to self, town, and year. Has had pleasant, cooperative affect. Interacts appropriately with staff and peers.
[2016-10-25 19:30] VITALS: BP 145/80
[2016-10-25] MEDS: REMERON PO SCH (20:15)
--- NOTE | 2016-10-26 03:02 | NUR ---
BEHAVIORS PT. ORIENTED TIMES THREE. RATES DEPRESSION AND ANXIETY 0. PLEASANT AFFECT. PARTICIPATED IN GROUP ACTIVITY AND ATE SNACKS. INITIATED INTERACTION WITH PEERS AND STAFF. AFTER PT. WENT TO BED AND RESTED WITH EYES CLOSED, SHE CAME OUT OF HER ROOM TO THE NURSES'S DESK AND STATED EVERY TIME SHE WAKES UP SHE LOOKS FOR HER DOGS THEN WENT BACK TO BED.
[2016-10-26] MEDS ORDERED: NAMENDA ONE (06:16)
[2016-10-26 08:04] VITALS: BP 136/97
[2016-10-26] MEDS: LOTENSIN PO SCH (08:18)
[2016-10-26] MEDS: RISPERDAL PO SCH ×2 (08:18→20:31)
[2016-10-26] MEDS: NAMENDA PO SCH (08:18)
[2016-10-26] MEDS: VITAMIN D PO SCH (08:18)
[2016-10-26] MEDS: CALTRATE PO SCH ×2 (08:18→20:31)
[2016-10-26] MEDS: NORVASC PO SCH (08:18)
[2016-10-26] MEDS: [UNRECOGNIZED DRUG - OTHER] PO SCH ×2 (08:18→20:31)
[2016-10-26] MEDS: ARICEPT PO SCH (08:18)
--- NOTE | 2016-10-26 09:55 | NUR ---
BEHAVIOR: PT. IS ALERT AND ORIENTED TO NAME AND DATE. PT. THINKS SHE IS IN [place]. PT. DENIES ANY DEPRESSION, ANXIETY, OR S/H IDEATION. PT. IS PLEASANT,CALM AND COOPERATIVE. PT.PARTICIPATES IN GROUP.
--- NOTE | 2016-10-26 15:25 | NUR ---
VSEE: DR. YBARRA SEEN PT. VIA VSEE. ORDER RECEIVED TO INCREASE REMERON TO 22.5 MG AT HS.
[2016-10-26] MEDS ORDERED: REMERON ONE (18:30)
[2016-10-26 19:30] VITALS: BP 125/86
[2016-10-26] MEDS: REMERON PO SCH (20:31)
[2016-10-27] MEDS ORDERED: NAMENDA ONE (05:54)
--- NOTE | 2016-10-27 07:29 | PNH ---
DATE: 10/26/2016 PSYCHIATRIC PROGRESS NOTE TIME: 2:20-2:40. HISTORY OF PRESENT ILLNESS: This patient is a 76-year-old female with a history of a dementing illness, behavior problems as well as severe depression with depressed mood, disturbed sleep, appetite, energy and concentration. Positive anhedonia, cognitive decline consistent with a dementing illness, representing a risk of danger to herself on admission with aggressive behavior, exit seeking behavior and depression. The patient is improving, although remains quite symptomatic and is appropriate for ongoing hospitalization currently. OBJECTIVE: VITAL SIGNS: Blood pressure was 147/89, pulse 57, respirations 18, temperature 98.1, oxygen saturation 94%. REVIEW OF SYSTEMS: HEENT: Normal. RESPIRATORY: No shortness of breath, coughing or wheezing. CARDIAC: No chest pain or palpitations. GASTROINTESTINAL: No nausea, vomiting, diarrhea or constipation. GENITOURINARY: No difficulty with urination. MUSCULOSKELETAL: No muscle pain. EXTREMITIES: No swelling or edema. NEUROLOGIC: Normal. ENDOCRINE: Normal. MENTAL STATUS EXAMINATION: Reveals an alert female with decreased psychomotor activity. Concentration and memory decreased. Speech and language are normal. Orientation decreased. Intelligence is average. Mood assessed as depressed. Affect constricted. Insight and judgment poor. Thought illogical at times with some paranoid thoughts and delusional thoughts. ASSESSMENT AND PLAN: DIAGNOSES: AXIS I: 1. Delusional disorder. 2. Major depressive disorder. 3. Generalized anxiety disorder. 4. Alzheimer dementia with behavioral disturbance. AXIS II: Deferred. AXIS III: Refer to past medical history. AXIS IV: Stress of mental illness. AXIS V: Current global assessment of functioning of 25. TREATMENT PLAN: 1. This patient was admitted to the [facility] involuntarily per the court and is being observed closely. 2. She has been placed on medications, specifically Remeron increased today to 22.5 mg based on depressive symptoms, Risperdal 0.25 mg twice a day for psychosis, Aricept 10 mg a day and Namenda 7.5 mg with Haldol 1 mg for psychotic symptoms on a p.r.n. basis. 3. She will be discharged back to an outpatient setting when it is felt she no longer represents a risk of danger to herself or other individuals. [place] MD DR: MARCEL/aranza JOB# [id number]
[2016-10-27 07:56] VITALS: BP 135/82
[2016-10-27] MEDS: CALTRATE PO SCH ×2 (07:57→20:33)
[2016-10-27] MEDS: NAMENDA PO SCH (07:57)
[2016-10-27] MEDS: NORVASC PO SCH (07:57)
[2016-10-27] MEDS: [UNRECOGNIZED DRUG - OTHER] PO SCH ×2 (07:57→20:33)
[2016-10-27] MEDS: RISPERDAL PO SCH ×2 (07:57→20:33)
[2016-10-27] MEDS: VITAMIN D PO SCH (07:57)
[2016-10-27] MEDS: ARICEPT PO SCH (07:57)
[2016-10-27] MEDS: LOTENSIN PO SCH (07:57)
--- NOTE | 2016-10-27 09:10 | NUR ---
BEHAVIOR: PT. ALERT, ORIENTED X 2. PT. THINKS SHE IS IN [place]. PT. DENIES ANY DEPRESSION, ANXIETY AND DENIES ANY S/H IDEATION. PT. CALM AND COOPERATIVE. PT. PARTICIPATES IN GROUP.
[2016-10-27 20:01] VITALS: BP 143/82
[2016-10-27] MEDS: REMERON PO SCH (20:32)
[2016-10-28] MEDS ORDERED: NAMENDA ONE (05:41)
[2016-10-28] MEDS: LOTENSIN PO SCH (07:41)
[2016-10-28] MEDS: RISPERDAL PO SCH (07:41)
[2016-10-28] MEDS: NORVASC PO SCH (07:41)
[2016-10-28] MEDS: CALTRATE PO SCH (07:41)
[2016-10-28] MEDS: ARICEPT PO SCH (07:41)
[2016-10-28] MEDS: [UNRECOGNIZED DRUG - OTHER] PO SCH (07:41)
[2016-10-28] MEDS: VITAMIN D PO SCH (07:41)
[2016-10-28] MEDS: NAMENDA PO SCH (07:42)
[2016-10-28 07:45] VITALS: BP 150/89
[2016-10-28] MEDS ORDERED: DONE5TAB31 PO (09:45)
[2016-10-28] MEDS ORDERED: RISP0.2518 PO (09:45)
[2016-10-28] MEDS ORDERED: MIRT15TA3 PO (09:45)
[2016-10-28] MEDS ORDERED: MEMA5TAB PO (09:45)
--- NOTE | 2016-10-28 10:08 | PRM.DC ---
Discharge Summary Date of Arrival on Unit: Oct 20, 2016 Reason for Visit: Delusional Disorder, Dementia with Behavior Disturbance Additional Comments 76 y/o F with PMHx Alzheimers Dementia with Behavior disturbance who was involuntarily admitted after she was found walking her dogs along a busy highway and way trying to walk to a town [place] miles [place]. She had no medical issues during her stay. I spent 30 minutes evaluating the patient and coordinating her discharge. General: Alert, Oriented X3, Cooperative HEENT: Atraumatic, PERRLA, EOMI, Mucous membr. moist/pink Neck: Supple, No JVD, No thyromegaly, +2 carotid pulse wo bruit, No LAD Lungs: Clear to auscultation, Normal air movement Heart: Regular rate, Normal S1, Normal S2, No murmurs Abdomen: Normal bowel sounds, Soft, No tenderness, No hepatospenomegaly, No masses Extremities: No clubbing, No cyanosis, No edema, Normal pulses, No tenderness/ swelling Skin: No rashes, No breakdown, No significant lesion Neuro: Normal gait, Normal speech, Strength at 5/5 X4 ext, Normal tone, Sensation intact, Cranial nerves 3-12 NL, Reflexes 2+ Psych/Mental Status: Other (+Dementia) Results(Labs/Rad) First Vital Signs Date Time Temp Pulse Resp B/P Pulse Ox O2 Delivery O2 Flow Rate FiO2 10/20/16 15:29 112 18 96 10/20/16 15:37 98.2 165/79 10/20/16 18:02 Room Air Last Vital Signs Date Time Temp Pulse Resp B/P Pulse Ox O2 Delivery O2 Flow Rate FiO2 10/28/16 07:45 98.2 91 20 150/89 97 Room Air Intake and Output 10/28/16 07:00 Intake Total 2268 ml Balance 2268 ml Intake Oral 2268 ml # Voids 6 Current Medications Medications (Trade) Dose Ordered Sig/Dolly Route PRN Reason Start Time Stop Time Status Last Admin Dose Admin Haloperidol (Haldol) 1 mg Q6HR PRN PO AGITATION 10/20/16 18:30 11/19/16 18:29 Haloperidol Lactate (Haldol) 1 mg Q6HR PRN IM AGITATION 10/20/16 18:30 11/19/16 18:29 Lorazepam (Ativan) 0.5 mg Q6HR PRN PO ANXIETY 10/20/16 18:30 11/19/16 18:29 Lorazepam (Ativan) 0.5 mg Q6HR PRN IM ANXIETY 10/20/16 18:30 11/19/16 18:29 Miscellaneous Medication (Namenda) 7.5 mg DAILY PO 10/21/16 09:00 11/20/16 08:59 10/28/16 07:42 Mirtazapine (Remeron) 15 mg HS PO 10/20/16 21:00 10/26/16 17:48 DC 10/25/16 20:15 Risperidone (Risperdal) 0.25 mg BID PO 10/20/16 21:00 11/19/16 20:59 10/28/16 07:41 Mirtazapine (Remeron) 15 mg STK-MED ONCE .ROUTE 10/20/16 18:43 10/20/16 20:44 DC Risperidone (Risperdal) 0.25 mg STK-MED ONCE .ROUTE 10/20/16 18:43 10/20/16 20:44 DC Donepezil HCl (Aricept) 10 mg DAILY PO 10/21/16 09:00 11/20/16 08:59 10/28/16 07:41 Donepezil HCl (Aricept) 5 mg STK-MED ONCE .ROUTE 10/21/16 06:47 10/21/16 08:48 DC Miscellaneous Medication (Namenda) 10 mg STK-MED ONCE .ROUTE 10/21/16 06:47 10/21/16 08:48 DC Alendronate Sodium (Fosamax) 70 mg Q7D PO 10/21/16 13:00 11/20/16 12:59 Calcium/Vitamin D (Caltrate 600 + D Tablet) 1 each BID PO 10/21/16 21:00 11/20/16 20:59 10/28/16 07:41 Cholecalciferol (Vitamin D) 5,000 unit DAILY PO 10/22/16 09:00 11/21/16 08:59 10/28/16 07:41 Meloxicam (Mobic) 15 mg DAILY PRN PO PAIN 10/21/16 13:00 11/20/16 12:59 Amlodipine Besylate (Norvasc) 5 mg DAILY PO 10/22/16 09:00 11/21/16 08:59 10/28/16 07:41 Benazepril HCl (Lotensin) 10 mg DAILY PO 10/22/16 09:00 11/21/16 08:59 10/28/16 07:41 Calcium/Vitamin D (Caltrate 600 + D Tablet) 1 each STK-MED ONCE .ROUTE 10/21/16 18:18 10/21/16 20:19 DC Miscellaneous Medication (Namenda) 10 mg STK-MED ONCE .ROUTE 10/22/16 06:04 10/22/16 08:08 DC Amlodipine Besylate (Norvasc) 5 mg STK-MED ONCE .ROUTE 10/22/16 06:05 10/22/16 08:08 DC Benazepril HCl (Lotensin) 20 mg STK-MED ONCE .ROUTE 10/22/16 06:06 10/22/16 08:08 DC Cholecalciferol (Vitamin D) 5,000 unit STK-MED ONCE .ROUTE 10/22/16 06:07 10/22/16 08:08 DC Miscellaneous Medication (Namenda) 10 mg STK-MED ONCE .ROUTE 10/23/16 06:52 10/23/16 08:53 DC Miscellaneous Medication (Namenda) 10 mg STK-MED ONCE .ROUTE 10/24/16 06:18 10/24/16 08:19 DC Miscellaneous Medication (Namenda) 10 mg STK-MED ONCE .ROUTE 10/25/16 06:40 10/25/16 08:41 DC Miscellaneous Medication (Namenda) 10 mg STK-MED ONCE .ROUTE 10/26/16 06:16 10/26/16 08:16 DC Mirtazapine (Remeron) 22.5 mg HS PO 10/26/16 21:00 11/25/16 20:59 10/27/16 20:32 Mirtazapine (Remeron) 15 mg STK-MED ONCE .ROUTE 10/26/16 18:30 10/26/16 20:31 DC Miscellaneous Medication (Namenda) 10 mg STK-MED ONCE .ROUTE 10/27/16 05:54 10/27/16 07:55 DC Miscellaneous Medication (Namenda) 10 mg STK-MED ONCE .ROUTE 10/28/16 05:41 4/5/17 07:42 DC Scheduled Alendronate Sodium (Alendronate Sodium) 70 MG PO Q7D (Reported) Amlodipine Besylate/Benazepril (Amlodipine-Benazepril 5-10 Mg) 1 CAP PO DAILY ( Reported) Calcium Carbonate/Vitamin D3 (Calcium 500-Vit D3 600 Tablet) 1 EACH PO DAILY ( Reported) Cholecalciferol (Vitamin D3) (Vitamin D-3) 5,000 UNIT PO DAILY (Reported) Donepezil Hcl (Aricept) 10 MG PO DAILY Memantine HCl/Donepezil HCl (Namzaric Titration Pack) 7 MG PO DAILY (Reported) Memantine Hcl (Namenda) 7.5 MG PO DAILY Mirtazapine (Mirtazapine) 1 TAB PO HS (Reported) Mirtazapine (Remeron) 22.5 MG PO HS Risperidone (Risperdal) 0.25 MG PO BID Scheduled PRN Meloxicam (Mobic) 1 TAB PO DAILY PRN PRN PAIN (Reported) Course Blood Pressure Systolic: 150 Blood Pressure Diastolic: 89 Blood Pressure Mean: 109 Plan Problems: (1) Delusional disorder Status: Acute ICD Code: F22 SNOMED: 71250573 (2) Osteoporosis Status: Acute ICD Code: M81.0 SNOMED: 84862334 (3) Chronic obstructive pulmonary disease Status: Chronic ICD Code: J44.9 SNOMED: 13736928 (4) Essential (primary) hypertension Status: Chronic ICD Code: I10 SNOMED: 97523048 (5) Cigarette nicotine dependence with withdrawal Status: Chronic ICD Code: F17.213 SNOMED: 77078417 (6) Underweight on examination Permanent Comment: Not malnourished. Albumin 3.9. Last Edited By: Bruno Abbasi MD on Oct 21, 2016 14:00 Status: Chronic ICD Code: R63.6 SNOMED: 551324569 (7) Postmenopausal Status: Chronic ICD Code: Z78.0 SNOMED: 69201438 (8) Insomnia Permanent Comment: Slept 4.75 hrs 10/20->10/21. Likely 2/2 Dementia, Depression , and Anxiety. Last Edited By: Bruno Abbasi MD on Oct 21, 2016 14:05 Status: Acute ICD Code: G47.00 SNOMED: 490502240 (9) Anxiety Status: Acute ICD Code: F41.9 SNOMED: 20160799 (10) Irritability and anger Permanent Comment: Per Psychiatrist lenore Souza has problems with anger and irritability. 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
--- NOTE | 2016-10-28 10:46 | NUR ---
Tx team Pt was seen by Dr. Moore and tx team, along with daughter and daughter in law. Pt denies depression/anxiety/SI. States, "I'm doing fine. I'm alive and well." "Besides my memory, but that's a lot better now." Received new orders to discharge pt today with psychiatric home health. Pt and family agreeable to plan.
--- NOTE | 2016-10-28 11:00 | NUR ---
DISCHARGE PLAN: PT TO DC HOME TODAY WITH FAMILY. PT CURRENTLY LIVES WITH SON AND [id number]. [id number] IS PRIMARY CAREGIVER. FAMILY CHOSE [facility] FOR CONTINUITY OF CARE. REQUIRED DOCUMENTS FAXED.
--- NOTE | 2016-10-28 11:30 | NUR ---
Discharge Discharge education and information provided to pt, daughter, and daughter in law. Information regarding new psych rx, including s/e provided. Education provided regarding delusions, alzheimer's, and smoking cessation. Questions and concerns answered. Pt is to follow up with PCP as needed, and will begin psych home health.
[2016-10-28 11:35] VITALS: BP 150/89
--- NOTE | 2016-10-28 11:35 | NUR ---
Off unit Pt ambulated off unit alongside daughter, daughter in law, and nurse aid, down to private vehicle. No s/s of distress noted.
--- NOTE | 2016-10-28 14:00 | NUR ---
Rx New rx called into [facility] pharmacy in [place], [place]. [phone]
--- NOTE | 2016-10-28 15:12 | DSH ---
DATE OF DISCHARGE: 10/28/2016 EVALUATED: 9:20-9:40 HOSPITAL COURSE: This patient is a 76-year-old female with a history of Alzheimer's type dementia with behavior problems, depression and delusional disorder. The patient admitted involuntarily per the court, aggressive, agitated, labile. She was yelling and screaming at staff, depressed mood, disturbed sleep, appetite, energy and concentration, significant paranoid thoughts with delusional symptoms as well. The patient has been placed on medication and involved in therapy groups and activities. Medications, specifically includes Remeron 15 mg at bedtime, Risperdal 0.25 mg twice a day, Aricept 10 mg a day and Namenda 7.5 mg. On these medications and with therapy, the patient has shown complete resolution of all delusional thought and depression, cognitive function is improving as well although she does have a dementing illness. She has responded exceedingly well to inpatient treatment and reached the end point of her inpatient hospitalization at this time. No suicidal or homicidal ideation, intent or plan at the time of discharge. DISCHARGE DISPOSITION: DIAGNOSES: AXIS I: 1. Delusional disorder. 2. Depression. 3. Dementia with behavioral disturbance. AXIS II: Deferred. AXIS III: Refer to past medical history. AXIS IV: Stress of mental illness. AXIS V: Current global assessment of functioning of 40. TREATMENT PLAN: 1. This patient was admitted involuntarily to the [facility] representing a danger to herself and others. 2. She is placed on medications as outlined above. 3. She is participating in groups, therapies and activities. 4. We did have a family meeting and they were in agreement with this patient returning home as she has improved substantially with inpatient treatment. This patient will be discharged on the above-mentioned medication and she will be attending the intensive outpatient program at the [facility]. New Moore MD DR: MARCEL/aranza JOB# [id number]
== END 2016-10-28 11:35 | disposition home health service (06) | DRG 57 ==
LOC: ER 15:08 → GP 17:35 → EEVIPCON 17:35
PROVIDERS: ADMIT Psychiatry & Neurology Psychiatry; ATTEND Psychiatry & Neurology Psychiatry
DX: G30.9 Alzheimer's disease, unspecified (principal); F02.81 Dementia in other diseases classified elsewhere, unspecified severity, with behavioral disturbance; F17.213 Nicotine dependence, cigarettes, with withdrawal; Z68.1 Body mass index [BMI] 19.9 or less, adult; J44.9 Chronic obstructive pulmonary disease, unspecified; I10 Essential (primary) hypertension; G47.00 Insomnia, unspecified; F32.9 Major depressive disorder, single episode, unspecified; M81.0 Age-related osteoporosis without current pathological fracture; F22 Delusional disorders; F41.1 Generalized anxiety disorder; R63.6 Underweight; M19.90 Unspecified osteoarthritis, unspecified site; Z79.899 Other long term (current) drug therapy; Z88.0 Allergy status to penicillin
CPT/HCPCS: 36415; 71010; 80053; 80061; 80164; 80178; 80307; 81000; 82550; 82607; 83036; 83880; 84443; 84484; 85025; 85610; 85730; 86140; 87077; 87086; 87186; 93005; 97150; 97166; 97802; 99285; J2060; G8987; G8988